=== PATIENT | male | born 1975 | race Caucasian/White ===

== ENCOUNTER → 2018-01-27 | Outpatient (CLI) | payer OTHER ==
[~2018-01-27] MED LIST: CIPROFLOXACIN500 M3 PO; DOXYCYCLINE 10100 M1 PO; NOHOMEMEDICATIONS
== END ==
LOC: RAD 12:37
DX: M16.12 Unilateral primary osteoarthritis, left hip (principal); M16.11 Unilateral primary osteoarthritis, right hip

== ENCOUNTER → 2021-07-04 | Emergency (ER) | payer OTHER | LOC: ER 14:32 | DX: R50.9 Fever, unspecified (principal); Z53.21 Procedure and treatment not carried out due to patient leaving prior to being seen by health care provider ==